=== PATIENT | female | born 1980 | race Caucasian/White ===

== ENCOUNTER 2024-02-19 12:55 | Emergency (ER) | payer BC, SELFPAY ==
[2024-02-19 13:01] VITALS: BP 172/93; PULSE 89; RESP 20; TEMP 36.4; O2SAT 100; BMI 37.2
--- NOTE | 2024-02-19 13:25 | CRLHL7_ITS ---
For Patients: As a result of the Century Cures Act, medical imaging exams and procedure reports are released immediately into your electronic medical record. You may view this report before your referring provider. If you have questions, please contact your health care provider. INDICATION: Right shoulder pain. TECHNIQUE: Right shoulder radiographs, 3 views. COMPARISON: None. FINDINGS: No acute fractures or dislocation. The joint spaces are preserved. The glenoid appears intact. Well corticated ossific density adjacent to the acromion may represent an os acromiale, variant anatomy No significant soft tissue edema or radiopaque foreign bodies. The visualized lung field appears clear. IMPRESSION: No acute fractures or dislocation. Dictated by Jin Ortiz MD @ 02/19/2024 1:56:36 PM (Electronically Signed)
--- NOTE | 2024-02-19 13:26 | ED.GENADULT ---
HPI - General Adult General Chief complaint: Shoulder Injury/Pain Stated complaint: Shoulder pain Time Seen by Provider: 02/19/24 12:57 History of Present Illness HPI narrative: This 43-year-old female comes in with right shoulder pain that began last week. 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 She states that she has real difficulty sleeping at night because of the pain. She states that her range of motion of her shoulder is intact but it is painful to do so. Her pain is located on the anterior aspect of her right shoulder region. She states that there are times when the symptoms radiate proximally and distally from this area. Sometimes the pain proceeds down into her fingers. She states that it seems to be worse when stretching her arm downward or when pulling her arm back as if she were to throw something. Related Data Previous Rx's ?Medication ?Instructions ?Recorded cyclobenzaprine 10 mg tablet 10 mg PO TID #15 tabs 02/19/24 hydrocodone 5 mg-acetaminophen 325 1 tab PO Q4-6H PRN pain #20 tabs 02/19/24 mg tablet ketorolac 10 mg tablet 10 mg PO Q8H 5 days #15 tabs 02/19/24 methylprednisolone 4 mg tablets in See Rx Instructions PO .COMPLEX 02/19/24 a dose pack (Medrol (Bryce)) #21 ea Allergies Allergy/AdvReac Type Severity Reaction Status Date / Time sulfamethoxazole Allergy Severe Confusion Verified 11/08/22 10:33 trimethoprim Allergy Severe Hives Verified 11/08/22 10:33 Sulfa drugs Allergy Severe Uncoded 11/08/22 10:33 Sulfamethoxazole / Allergy Intermediate Hives Uncoded 11/08/22 10:33 trimethoprim Review of Systems Status of ROS: Reports: 10 or more systems reviewed and unremarkable except as noted in History and below Narrative: Constitutional: No fevers, no weight gain or loss. Eyes: No discharge. No vision changes. HENT: No congestion, no sore throat, no ear pain. Cardiovascular: No chest pain, no palpitations. Respiratory: No shortness of breath, no wheezes, no cough. Gastrointestinal: No abdominal pain, no vomiting, no diarrhea. Genitourinary: No dysuria, no hematuria. Musculoskeletal: Normal range of motion. Right shoulder pain as described above. Skin: No rashes, no pruritis. Neurological: No dizziness, weakness, sensory change, speech change. Endo/Heme/Allergies: No bruising or bleeding. No polydipsia. Pysch: no suicidality, no anxiety, no insomnia. All other systems reviewed and are negative. [facility] Medical History (Updated 02/19/24 @ 14:15 by Aravind Linares MD) Foot pain, right ?M79.671 - Pain in right foot (ICD-10) Social History Smoking Status: Current every day smoker Exam Narrative: Exam Narrative: Constitutional: Well-developed, well-nourished, no acute distress. HEENT: Normocephalic, atraumatic. Neck: Normal range of motion. Nontender. Supple. Heart: Intact distal pulses. Lungs: No chest discomfort. No wheezes, rhonchi, or rales. Abdomen: Nontender. Back: Normal range of motion. Extremities: Normal range of motion. No sign of deformity. She reports tenderness above and below the distal portion of the right clavicle. This produces some pain that seems to radiate some down into her arm. Skin: Intact. No rash. Warm. No erythema or pallor. Neurologic: No altered sensation. No weakness. Alert and oriented. Psychiatric: No suicidality. No anxiety or depression. No insomnia. Nursing notes and vitals signs are reviewed. Const: Vital Signs, click to edit/add: Vital Signs - 24 hr 02/19/24 13:01 Temperature 97.6 F Pulse Rate [Pulse Oximeter] 89 Respiratory Rate 20 Blood Pressure [Le ft Upper Arm] 172/93 H Pulse Oximetry 100 Oxygen Delivery Me thod Room Air Course Vital Signs Vital signs: Initial Vital Signs Temperature 97.6 F 02/19/24 13:01 Temperature Source Temporal Artery Scan 02/19/24 13:01 Pulse Rate 89 02/19/24 13:01 Respiratory Rate 20 02/19/24 13:01 Blood Pressure 172/93 H 02/19/24 13:01 Blood Pressure Mean 119 H 02/19/24 13:01 Blood Pressure Position Sitting 02/19/24 13:01 Pulse Oximetry 100 02/19/24 13:01 Oxygen Delivery Method Room Air 02/19/24 13:01 Vital Signs Temperature 97.6 F 02/19/24 13:01 Pulse Rate 89 02/19/24 13:01 Respiratory Rate 20 02/19/24 13:01 Blood Pressure 172/93 H 02/19/24 13:01 Pulse Oximetry 100 02/19/24 13:01 Oxygen Delivery Method Room Air 02/19/24 13:01 Temperature 97.6 F 02/19/24 13:01 Pulse Rate 89 02/19/24 13:01 Respiratory Rate 20 02/19/24 13:01 Blood Pressure 172/93 H 02/19/24 13:01 Pulse Oximetry 100 02/19/24 13:01 Oxygen Delivery Method Room Air 02/19/24 13:01 Medical Decision Making MDM Narrative Medical decision making narrative: This patient is here because of severe pain in her right shoulder region as described above. An x-ray is obtained and shows no acute findings. I revisited the patient and see she then stated that she only gets relief if she puts her wrist up above her head. This is a maneuver that can bring relief to a C6 nerve impingement potentially. She does have some suspicion of nerve impingement in her report of her symptoms. 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 I advised her to follow-up with our spine clinic but also provided prescriptions for medications including steroid, pain medicine and muscle relaxant. She also received a sling. Imaging Data XR R Shoulder: Radiologist's impression: No acute fractures or dislocation. Discharge Plan Discharge Clinical Impression: Cervical radiculopathy at C6 Patient Disposition: Home, Self-Care Condition: Unchanged Additional Instructions: Take medication as prescribed and needed. Increase activity as tolerated. Follow up with spine clinic. Call [phone] for appointment. Return if worsening. Prescriptions: New cyclobenzaprine 10 mg tablet 10 mg PO TID Qty: 15 0RF ketorolac 10 mg tablet 10 mg PO Q8H 5 Days Qty: 15 0RF methylprednisolone [Medrol (Bryce)] 4 mg tablets,dose pack See Rx Instructions .ROUTE .COMPLEX Qty: 21 0RF Rx Instructions: orally per package directions hydrocodone-acetaminophen 5-325 mg tablet 1 tab PO Q4-6H PRN (Reason: pain) Qty: 20 0RF Follow Up/Referrals: Kelechi Crowder MD [Primary Care Provider] - Stand Alone [facility]: [facility]
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
== END 2024-02-19 14:30 | disposition home or self-care (01) ==
PROVIDERS: Emergency Provider Emergency Medicine Emergency Medical Services; PCP Internal Medicine
DX: M54.12 Radiculopathy, cervical region (principal)
CPT/HCPCS: 73030; 99283; 99284